=== PATIENT | female | born 1985 | race Caucasian/White ===

== ENCOUNTER → 2021-05-28 | Outpatient (CLI) | payer OTHER ==
[~2021-05-28] MED LIST: CELEXA 20MG20 MG/TAB PO; COLACE 100100 MG/CAP PO; MOTRIN 600600 MG/TAB PO; MOTRIN 800800 MG/TAB PO; PERCOCET 325 MG1 TA2 PO; PRENATAL1 TA1 PO; PROZAC 20MG20 MG PO; [UNRECOGNIZED DRUG - OTHER]
== END ==
LOC: COL.RAD 13:44
DX: U09.9 Post COVID-19 condition, unspecified (principal); J18.9 Pneumonia, unspecified organism; J90 Pleural effusion, not elsewhere classified; Q32.4 Other congenital malformations of bronchus
CPT/HCPCS: Q9967